=== PATIENT | female | born 1975 | race Two or more races ===

== ENCOUNTER 2023-06-17 18:43 | Emergency (ER) | payer OTHER, SELFPAY ==
[2023-06-17 18:58] VITALS: BP 133/95
--- NOTE | 2023-06-17 22:13 | ED.GENMED ---
History of Present Illness
General
Chief Complaint: Fall
Source: patient
Exam Limitations: none
Time Seen by Provider: 06/17/23 21:38
Travel History
Have you had any contact with someone who has COVID-19?: No
Do you have any symptoms of coronavirus? Fever > 100 degrees, chills, cough, shortness of breath, sore throat, loss of taste or smell, muscle aches, or headache?: No
History of Present Illness
History of Present Illness:
This is a 48 year old female that comes in with c/o fall. States that she was at school and going down the basement and she fell down 5-6 steps. States that she got up and walked right after. State that when she got home her right leg is very
swollen and she was afraid of a blood clot. States that she also had left shoulder and left knee pain. Denies hitting her head or any LOC. Denies any fever, chills, chest pain, SOB, abd pain, nausea, vomiting, diarrhea, headache, dizziness, urinary
burning.
Past History
Past History
ED Past Medical History: NIDDM (On no medication as of this date) and Other (Ovarian cyst )
ED Past Surgical History: Gynecological (Uterine Polyp removed)
Social History
Tobacco: Non-smoker
Alcohol: Occasional
Personal:
Living: with family
Employment: Employed
Review of Systems
Review of Systems
All Other Systems: ROS reviewed and negative except as documented in HPI and ROS
Constitutional: Reports no symptoms; Denies fever or chills
EENT: Reports no symptoms
Respiratory: Reports no symptoms; Denies cough or trouble breathing
Cardiac: Reports no symptoms; Denies chest pain
ABD/GI: Reports no symptoms; Denies abdominal pain, nausea, vomiting or diarrhea
: Reports no symptoms; Denies dysuria, frequency or urgency
Musculoskeletal: Reports joint pain (left knee pain and left shoulder) and other (Right lower leg pain, )
Skin: Reports no symptoms
Neurological: Reports no symptoms; Denies dizzy or headache
Psychiatric: Reports no symptoms
Phy Exam
General Physical Exam
General Presentation: well appearing and no apparent distress
General age: appears stated age
General Skin: warm and dry
General Habitus: normal
General Mental: alert
General Hydration: appears well hydrated
ENT Exam
ENT Exam: TM's normal, pharynx normal and neck supple
Eye Exam
Eye Exam: EOMI
Cardiovascular Exam
Cardiovascular Exam: regular rate/rhythm, no edema, no murmur and normal peripheral pulses
Pulmonary Exam
Pulmonary Exam: lungs clear, no respiratory distress, no rales, chest non tender, no crackles, no rhonchi, no wheezing and no cough
Gastrointestinal Exam
Gastrointestinal Exam: normal bowel sounds, non tender, soft, no organomegaly, no pulsatile mass and non distended
Musculoskeletal Exam
Musculoskeletal Exam: full ROM and other (Contusion of the right proximal lower leg, Tender to palpation. Negative for any cervical neck tenderness or spinal tenderness. Left lateral shoulder contusion noted and left medial contusion noted distal
knee. )
Skin Exam
Skin Exam: normal color, warm/dry, no petechia and other (Contusion on right lower leg, left shoulder and medial left knee)
Psychiatric Exam
Psychiatric Exam: normal mood/affect
Course
Orders/Labs/Results
Orders:
Orders
06/17/23 19:33
Knee, Left 4 or More Views [CR Knee - Left 4 Or More View*] Urgent
Comment:
Reason For Exam: fall/pain
Shoulder, Left, Trauma CR [CR Shoulder, Trauma - Left] Urgent
Comment:
Reason For Exam: fall/pain
06/17/23 21:18
US Legs, Right [US Periph Venous LOWER Ext RT] Urgent
Comment:
Reason For Exam: swelling/pain
Vital Signs
Initial and Last Documented VS:
Initial Vital Signs
Temp Pulse Resp BP Pulse Ox
97.9 F 105 19 133/95 100
06/17/23 18:58 06/17/23 18:58 06/17/23 18:58 06/17/23 18:58 06/17/23 18:58
Last Documented Vital Signs
Temp Pulse Resp BP Pulse Ox
97.9 F 105 19 133/95 100
06/17/23 18:58 06/17/23 18:58 06/17/23 18:58 06/17/23 18:58 06/17/23 18:58
MDM/Problems Addressed
Differential Diagnosis Includes:
Accidental fall. Contusions
MDM/Problems Addressed:
This is a 48 year old female that was going down the steps to the basement at school and she fell down about 5-6 steps. States that she has left shoulder and left knee discomfort and there is swelling with bruising of the right lower leg and she was
afraid of a clot.
Will get X-rays and US.
Back into see patient. Explained that her US is negative and her X-rays are normal. Will have patient use ice to any area that is sore. Tylenol or any discomfort. Return with any concerns.
Chronic conditions affecting care:
NA
Acute Exacerbation and/or Progression of Chronic Illness:
NA
*Radiology
Radiology exam reviewed: radiology read reviewed (US-No sonographic evidence for right lower extremity deep venous thrombosis. Left shoulder surgery- No acute fracture or dislocation. Left knee- No acute fracture or dislocation)
*Pulse Oximetry
Patient hypoxic: no
*EKG
Interpreted by ED Provider?: NA
Rate: EKG- N/A
*Jewelry Mechanic Interpretation
Rate: Jewelry Mechanic- N/A
*Critical Care Note
Total Time (30-74mins, 75-104mins- exclusive of procedures): Not Applicable
ED Attending Note
-
Portions of this chart may have been created with voice recognition software.� Occasional wrong word or��sound alike� substitutions may have occurred due to the inherent limitations of voice recognition software.
Discharge Plan
Departure
Patient Disposition: Home (Routine Discharge)
Date of Disposition: 06/17/23
Time of Disposition: 22:22
Patient with high blood pressure during this ER visit?: Yes
Condition: Good
Covid-19: Not Applicable
Discharge Problem:
Accidental fall, Hematoma of right lower leg
Instructions: Contusion (DC), BLOOD PRESSURE, Hematoma
Prescriptions:
No Action
naproxen sodium [Aleve] 220 MG tablet
440 mg PO PRN PRN (Reason: PAIN)
No Current Medications
hydrocodone-acetaminophen 5 MG/500 MG tablet
1 tab PO Q4HPRN PRN (Reason: PAIN) Qty: 15 0RF
Activity Restrictions/Additional Instructions:
As discussed, your US is negative for any blood clots. This looks to be a hematoma. This will just take time to reabsorb and for the swelling to go down. Your Left knee and left shoulder are negative for any fractures or dislocation. Please use ice
to any are that is sore. Tylenol 1000mg every 6 hours for any pain. IF YOU HAVE ANY OTHER CONCERNS PLEASE RETURN TO THE EMERGENCY ROOM.
Interventions
Interventions:
*Risk Screen - Suicide Last Done: 06/17/23 18:58
*General Assessment Last Done: 06/17/23 18:58
*Neglect/Abuse Screening Last Done: 06/17/23 18:58
*ED COVID-19 Vaccine History Last Done: 06/17/23 18:58
== END 2023-06-17 23:05 | disposition home or self-care (01) ==
LOC: EMR 18:43
PROVIDERS: EMERGENCY PHYSICIAN Emergency Medicine; FAMILY PHYSICIAN Family Medicine
DX: S80.11XA Contusion of right lower leg, initial encounter (principal); W10.9XXA Fall (on) (from) unspecified stairs and steps, initial encounter; E11.9 Type 2 diabetes mellitus without complications
CPT/HCPCS: 99284; 73030; 73564; 93971

== ENCOUNTER → 2023-07-10 06:19 | Day surgery (SDC) | payer OTHER, SELFPAY | LOC: GI 06:19 | PROVIDERS: ATTENDING PHYSICIAN Internal Medicine Gastroenterology; FAMILY PHYSICIAN Family Medicine | DX: Z12.11 Encounter for screening for malignant neoplasm of colon (principal); D12.2 Benign neoplasm of ascending colon; K63.5 Polyp of colon | CPT/HCPCS: 45385; 45380; 88305 ==

== ENCOUNTER → 2023-09-01 12:10 | Outpatient (REF) | payer OTHER, SELFPAY | LOC: WDC 12:10 | PROVIDERS: ATTENDING PHYSICIAN Obstetrics & Gynecology Gynecology; FAMILY PHYSICIAN Family Medicine | DX: Z12.31 Encounter for screening mammogram for malignant neoplasm of breast (principal) | CPT/HCPCS: 77063; 77067 ==

== ENCOUNTER → 2024-09-01 12:51 | Outpatient (REF) | payer OTHER, SELFPAY | LOC: WDC 12:51 | PROVIDERS: ATTENDING PHYSICIAN Obstetrics & Gynecology Gynecology; FAMILY PHYSICIAN Family Medicine | DX: Z12.31 Encounter for screening mammogram for malignant neoplasm of breast (principal) | CPT/HCPCS: 77063; 77067 ==